=== PATIENT | female | born 1970 | race African-American/Black ===

== ENCOUNTER → 2017-02-23 | Outpatient (CLI) | payer OTHER ==
--- NOTE | 2017-02-23 10:39 | RAD ---
Left wrist, 4 views, 02/23/2017: History: Wrist pain No fracture or dislocation is identified. No significant arthritic change is seen. There is moderate subcutaneous edema about the distal forearm and wrist. IMPRESSION: No acute bony abnormality is detected.
== END | disposition home or self-care (01) ==
LOC: DXRAD 09:23
PROVIDERS: ATTEND General Practice
DX: M25.532 Pain in left wrist (principal); R60.9 Edema, unspecified
CPT/HCPCS: 73110

== ENCOUNTER → 2019-01-29 | Outpatient (CLI) | payer OTHER ==
--- NOTE | 2019-01-29 11:20 | CARD ---
MR#: [id number] Date of Study: 01/29/2019 Ordering Physician: JASON MAGANA, Referring Physician: JASON MAGANA, Tech: Ilsa Flower APPROVED REPORT EXAM: Two-dimensional and M-mode echocardiogram with Doppler and color Doppler. Other Information Quality : AverageHR: 66bpm INDICATION Hypertension/HCVD 2D DIMENSIONS Left Atrium(2D)3.5 (1.6-4.0cm)IVSd1.0 (0.7-1.1cm) Aortic Root(2D)2.8 (2.0-3.7cm)LVDd4.2 (3.9-5.9cm) LVOT Diameter1.9 (1.8-2.4cm)PWd0.9 (0.7-1.1cm) LVDs2.6 (2.5-4.0cm)FS (%) 36.5 % SV51.4 mlLVEF(%)66.7 (>50%) Aortic Valve AoV Peak Hollis.150.0cm/sAoV VTI31.9cm AO Peak GR.9.0mmHgLVOT Peak Hollis.140.1cm/s LVOT VTI 27.36cmAO Mean GR.5mmHg MYRANDA (VMAX)2.28mk9RPT (VTI)2.40cm2 Mitral Valve MV E Shajzoda039.7cm/sMV DECEL SEUN389uo MV A Czbpqsid69.0cm/sE/A Ratio1.9 Pulmonary Valve PV Peak Rpuerecz926.5cm/sPV Peak Grad.4mmHg Tricuspid Valve TR P. Lgqqkayp311fy/sRAP BJUTVPEV9uwHc TR Peak Gr.96koEwOHYW57dxZk Pulmonary Vein S1 Tpqbdwyl95.3cm/sD2 Pvxloxlu48.7cm/s LEFT VENTRICLE The left ventricle is normal size. There is borderline to mild concentric left ventricular hypertroph y. The left ventricular systolic function is normal. The Ejection Fraction is 60-65%. There is normal LV segmental wall motion. RIGHT VENTRICLE The right ventricle is normal size. There is normal right ventricular wall thickness. The right ventr icular systolic function is normal. ATRIA The left atrium size is normal. The right atrium size is normal. The interatrial septum is intact wit h no evidence for an atrial septal defect or patent foramen ovale as noted on 2-D or Doppler imaging. AORTIC VALVE The aortic valve is normal in structure and function. Doppler and Color Flow revealed no significant aortic regurgitation. There is no significant aortic valvular stenosis. MITRAL VALVE The mitral valve is normal in structure and function. There is no evidence of mitral valve prolapse. There is no mitral valve stenosis. Doppler and Color-flow revealed trace mitral regurgitation. TRICUSPID VALVE The tricuspid valve is normal in structure and function. Doppler and Color Flow revealed trace tricus pid regurgitation with an estimated PAP of 30 mmHg. There is no tricuspid valve prolapse or vegetatio n. There is no tricuspid valve stenosis. PULMONIC VALVE The pulmonary valve is normal in structure and function. Doppler and Color Flow revealed trace pulmon ic valvular regurgitation. GREAT VESSELS The aortic root is normal in size. The IVC is normal in size and collapses >50% with inspiration. PERICARDIAL EFFUSION There is small left pleural effusion. There is no evidence of significant pericardial effusion. Critical Notification Critical Value: No <Conclusion> The left ventricular systolic function is normal. The Ejection Fraction is 60-65%. There is normal LV segmental wall motion. Trace mitral regurgitation. Trace tricuspid regurgitation with an estimated PAP of 30 mmHg. There is no evidence of significant pericardial effusion. Signed by : Leonel Ryan, Electronically Approved : 01/29/2019 11:19:33
== END | disposition home or self-care (01) ==
LOC: ECHO 10:02
PROVIDERS: ATTEND Family Medicine
DX: I11.9 Hypertensive heart disease without heart failure (principal)
CPT/HCPCS: 93306

== ENCOUNTER 2020-02-08 08:08 | Emergency (ER) | payer OTHER ==
[~2020-02-08] VITALS: Ht 154.9 cm; Wt 97.7 kg
[2020-02-08 08:14] VITALS: BP 154/96
--- NOTE | 2020-02-08 09:01 | PHYS DOC ---
Past History Past Medical History: Cancer, Other Additional Past Medical Histor: Lymphadema left arm Past Surgical History: Cancer Surgery Additional Past Surgical Histo: Masectomy left breast Alcohol Use: None Adult General Chief Complaint Chief Complaint: EYE PROBLEMS [facility] HPI Patient is a 49-year-old female who presents with left eye problem. Reports suspect bleach versus dust inoculation to left eye within past 24 hours. Nothing known makes better, "everything" makes it worse. Patient denies any pain but admits feelings of foreign body sensation and generalized irritation to left eye. Timing of symptoms has been constant and unchanged since onset. Review of Systems Review of Systems Fourteen body systems of review of systems have been reviewed. See HPI for pertinent positives and negative responses, other dozier all other systems are negative, non-pertinent or non-contributory Allergies Allergies Allergies Coded Allergies Type Severity Reaction Last Updated Verified sulfur dioxide Allergy Unknown 02/08/20 Yes Physical Exam Physical Exam Constitutional: Well developed, well nourished, no acute distress, non-toxic appearance. HENT: Normocephalic, atraumatic, bilateral external ears normal, oropharynx moist, no oral exudates, nose normal. Eyes: PERRLA, EOMI, visual acuity intact and at baseline 20/30 each eye and bilaterally without contacts, eyelid examination unremarkable, negative fundoscopic exam, no obvious corneal abrasions seen on slit lamp, negative sidel sign, injected left conjunctiva with production of copious clear tears Neck: Normal range of motion, no tenderness, supple, no stridor. Cardiovascular: Heart rate regular, sinus rhythm, no murmurs rubs or gallops Lungs & Thorax: Bilateral breath sounds clear to auscultation Abdomen: Bowel sounds normal, soft, no tenderness, no masses, no pulsatile masses. Nonsurgical abdomen, no peritoneal signs Skin: Warm, dry, no erythema, no rash. Back: No tenderness, no CVA tenderness. Extremities: No tenderness, no cyanosis, no clubbing, ROM intact, no edema. Neurologic: Alert and oriented X 3, grossly normal motor & sensory function, no focal deficits noted. Psychologic: Affect normal, judgement normal, anxious mood Current Patient Data Vital Signs Vital Signs Date Time Temp Pulse Resp B/P (MAP) Pulse Ox O2 Delivery O2 Flow Rate FiO2 02/08/20 08:14 98.3 86 16 154/96 (115) 98 Room Air EKG EKG [] Radiology/Procedures Radiology/Procedures [] Heart Score Risk Factors: Risk Factors: DM, Current or recent (<one month) smoker, HTN, HLP, family history of CAD, obesity. Risk Scores: Risk Factors: DM, Current or recent (<one month) smoker, HTN, HLP, family history of CAD, obesity. Course & Med Decision Making Course & Med Decision Making Pertinent Labs and Imaging studies reviewed. (See chart for details) Discussed most likely diagnosis of conjunctivitis. Patient at higher risk for bacterial infection vs subtle corneal abrasion not seen on examination and so, joint-decision to cover patient with opthalmic abx. She does not wear contacts. Patient wanting to wear an eye patch, I told her this is not current practice guidelines. She has no visual impairment, no findings consistent and/or concerning for glaucoma, retinal detachment or other emergent diagnoses I advised patient to follow with her optho in upcoming 72 hours. She has good access to healthcare and reports this is possible all questions and concerns addressed prior to ED departure Dragon Disclaimer Dragon Disclaimer This electronic medical record was generated, in whole or in part, using a voice recognition dictation system. Departure Departure: Impression: Primary Impression: Bacterial conjunctivitis of left eye Disposition: 01 DC HOME SELF CARE/HOMELESS Condition: STABLE Referrals: JASON MAGANA MD (PCP) Patient Instructions: Conjunctivitis (Viral and Bacterial), Polymyxin B; Trimethoprim eye drops, solution Additional Instructions: As discussed prior to ER departure, please call your primary care physician first thing Monday morning to schedule outpatient follow-up within upcoming 2 to 6 days for reevaluation. As discussed, if condition does not improve I would recommend outpatient ophthalmology referral for repeat examination If any concerning signs or symptoms present prior to outpatient follow-up please do not hesitate to come back for repeat evaluation It was a pleasure to take care of you and I wish you a speedy recovery! Scripts Polymyxin B Sulf/Trimethoprim (POLYMYXIN B-TMP EYE DROPS) 10 Ml Drops 1 DROP EACHEYE QID for conjunctivitis for 7 Days, #10 ML 0 Refills Prov: DANN HARMAN DO 02/08/20 DANN HARMAN DO Feb 08, 2020 09:01
[2020-02-08] MEDS ORDERED: POLY10DR3 EACHEYE (09:51)
[2020-02-08] MEDS ORDERED: POLYMYXIN/TRIMETHOPRIM OPHTH SOLUTION 10ML BOTTLE. OU ONE (10:00)
== END 2020-02-08 10:06 | disposition home or self-care (01) ==
LOC: ER 08:08
DX: H10.89 Other conjunctivitis (principal); L29.9 Pruritus, unspecified; Z98.890 Other specified postprocedural states; Z85.9 Personal history of malignant neoplasm, unspecified; Z88.2 Allergy status to sulfonamides
CPT/HCPCS: 99283